=== PATIENT | female | born 1985 | race Caucasian/White ===

== ENCOUNTER 2016-03-16 17:51 | Emergency (ER) | payer OTHER ==
[2016-03-16] MEDS ORDERED: KETOROLAC 60 MG/2 ML VIAL IM ONE (19:44)
== END 2016-03-16 20:12 | disposition home or self-care (01) ==
LOC: ER 17:51
DX: S29.012A Strain of muscle and tendon of back wall of thorax, initial encounter (principal)
CPT/HCPCS: 96372